=== PATIENT | male | born 1995 | race Caucasian/White ===

== ENCOUNTER 2017-04-28 15:35 | Emergency (ER) | payer OTHER, BC ==
[~2017-04-28] VITALS: Ht 170.2 cm; Wt 65.0 kg
[2017-04-28 15:36] VITALS: BP 177/95; TEMP 98.1; O2SAT 99
[2017-04-28] MEDS ORDERED: ACETAMINOPHEN/HYDROcodone 325 MG/5 MG TAB PO ONE (17:30)
[2017-04-28] MEDS ORDERED: CYCLOBENZAPRINE HCL 10 MG TAB PO ONE (17:30)
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
[2017-04-28 19:15] VITALS: BP 131/71; PULSE 55; RESP 18; O2SAT 98
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
[2017-04-28] MEDS ORDERED: CYCL1TAB29 PO (19:31)
[2017-04-28] MEDS ORDERED: HYDR-3533 PO (19:31)
[2017-04-28 19:38] VITALS: BP 134/78; PULSE 71; RESP 18; O2SAT 99
== END 2017-04-28 19:59 | disposition home or self-care (01) ==
LOC: NEPD 15:35
DX: S09.90XA Unspecified injury of head, initial encounter (principal); S16.1XXA Strain of muscle, fascia and tendon at neck level, initial encounter; V43.52XA Car driver injured in collision with other type car in traffic accident, initial encounter
CPT/HCPCS: 70450; 71010; 72125; 72128; 72131; 99285